=== PATIENT | female | born 1965 | race African-American/Black ===

== ENCOUNTER 2018-05-19 10:33 | Inpatient (IN) | payer OTHER ==
[2018-05-19 10:40] VITALS: BMI 20.3
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
[2018-05-19] MEDS ORDERED: LOPERAMIDE HCL 2 MG CAPSULE PO PRN (11:26)
[2018-05-19] MEDS ORDERED: P-EPHED 60MG/TRIPROLIDI 2.5MG TABLET PO PRN (11:26)
[2018-05-19] MEDS ORDERED: hydrOXYzine PAMOATE 50 MG CAPSULE (FP) PO PRN (11:26)
[2018-05-19] MEDS ORDERED: MAG HYDROX/AL HYDROX/SIMETH 30 ML UNIT-DOSE CUP PO PRN (11:26)
[2018-05-19] MEDS ORDERED: MAGNESIUM CITRATE 300 ML BOTTLE PO PRN (11:26)
[2018-05-19] MEDS ORDERED: guaiFENesin/D-METHORPHAN HB 10 ML UNIT-DOSE CUPS PO PRN (11:26)
[2018-05-19] MEDS ORDERED: MAGNESIUM HYDROX 2400MG/30ML ORAL SUSPENSION 30 ML CUP PO PRN (11:26)
[2018-05-19] MEDS ORDERED: MENTHOL/PHENOL 1 EACH UD MM PRN (11:26)
[2018-05-19] MEDS ORDERED: ACETAMINOPHEN 325 MG TABLET (FP) PO PRN (11:26)
[2018-05-19] MEDS ORDERED: ALBUTEROL SO4 8 GM HFA INHALER IH PRN (11:33)
--- NOTE | 2018-05-19 11:48 | PN ---
[facility] Progress Note Note: patient is on methadone maintenance 70 mgs/day,but last medicated 04/30/18 at her program,stated she received 20 mgs of methadone at [facility] yesterday on ,will give methadone 30 mgs today and buid up 10 mgs each day until reaching 70 mgs/day
[2018-05-19] MEDS ORDERED: METHADONE HCL 10 MG TABLET PO ONE (12:00)
[2018-05-19] MEDS: NICOTINE 21 MG/24 HOURS TOPICAL PATCH TD SCH (13:04)
--- NOTE | 2018-05-19 14:14 | EKG ---
Test Reason : Blood Pressure : / mmHG Vent. Rate : 075 BPM Atrial Rate : 075 BPM P-R Int : 128 ms QRS Dur : 082 ms QT Int : 398 ms P-R-T Axes : 076 078 046 degrees QTc Int : 444 ms NORMAL SINUS RHYTHM NORMAL ECG NO PREVIOUS ECGS AVAILABLE Confirmed by AFRHAT LOPEZ MD ([id number]) on 05/19/2018 2:14:20 PM Referred By: Confirmed By:FARHAT LOPEZ MD
[2018-05-19 16:11] LABS: HEMATOCRIT 40.1 % (32.4-45.2); HEMOGLOBIN 13.4 GM/dL (10.7-15.3); MCH 32.4 pg (25.7-33.7); MCHC 33.5 g/dl (32.0-36.0); MEAN CELL VOLUME 96.8 fl (80-96); MEAN PLT VOLUME 9.5 fl (7.5-11.1); PLATELET COUNT 222 K/MM3 (134-434); RBC 4.15 M/mm3 (3.60-5.2); RDW 15.2 % (11.6-15.6); WHITE BLOOD COUNT 3.6 K/mm3 (4.0-10.0)
[2018-05-19 16:53] LABS: ALK PHOS 82 U/L (45-117); ANION GAP 11 MMOL/L (8-16); BILIRUBIN,TOTAL 0.4 mg/dL (0.2-1); BLOOD UREA NITROGEN 12 mg/dL (7-18); CALCIUM 8.8 mg/dL (8.5-10.1); CHLORIDE 104 mmol/L (98-107); CO2 26 mmol/L (21-32); CREATININE 0.8 mg/dL (0.55-1.3); GLUCOSE,RANDOM 71 mg/dL (74-106); POTASSIUM 3.6 mmol/L (3.5-5.1); SGOT/AST 14 U/L (15-37); SGPT/ALT 18 U/L (13-61); SODIUM 141 mmol/L (136-145); TOT PROT 7.5 g/dl (6.4-8.2)
[2018-05-19] MEDS: metFORMIN HCL 500 MG TABLET (FP) PO SCH (16:54)
[2018-05-19] MEDS: THIAMINE HCL 100 MG TABLET (FP) PO SCH (21:07)
[2018-05-19] MEDS: MELATONIN 5 MG TABLETS PO PRN (21:07)
[2018-05-19 21:32] LABS: URINE APPEARANCE TURBID; URINE BILIRUBIN NEGATIVE (<2.0 mg/dL); URINE COLOR AMBER; URINE GLUCOSE (UA) NEGATIVE (NEGATIVE); URINE KETONE NEGATIVE (NEGATIVE); URINE LEUK ESTERASE NEGATIVE (NEGATIVE); URINE NITRITE NEGATIVE (NEGATIVE); URINE PROTEIN 2+ (NEGATIVE); URINE UROBILINOGEN NEGATIVE mg/dL (0.2-1.0)
[2018-05-19 22:03] LABS: CALCIUM OXALATE CRYSTALS MODERATE /hpf (NONE SEEN); EPI CELLS FEW /HPF (FEW); URINE BACTERIA RARE /hpf (NONE SEEN); URINE MUCUS RARE; YEAST RARE
[2018-05-20] MEDS ORDERED: METHADONE HCL 40 MG DISPERSABLE TABLET PO ONE (06:00)
[2018-05-20] MEDS: metFORMIN HCL 500 MG TABLET (FP) PO SCH ×2 (06:29→16:51)
--- NOTE | 2018-05-20 09:48 | HP ---
Psychiatrist Admission - Data Date of interview: 05/20/18 Admission source: [facility] Identifying data: This is the first admission to [address] [place] [address] for this 53 yo AA single mother of 8 grown children,homeless, supported by PA. Medical History: DM,BA,H/O Umbilical hernia repair. Psychiatric History: Patient reports first contact with psychiatrist about 17 yo to address depression,mood instability,anxity,drinking and drug abuse.Patient was placed on Seroquel with some response.She reports one psychiatric hospitalization last week to [facility] due to severe depression,suicidal thoughts.No suicidal attempts reported .Patient is not compliant with outpatient care.She obtains Seroquel 100 mg po bid from local ER. Physical/Sexual Abuse/Trauma History: Patient denies. Vital Signs: Vital Signs - 24 hr 05/19/18 05/19/18 05/20/18 10:37 13:21 00:30 Temperature 97.1 F L 98.4 F Pulse Rate 82 85 Respiratory 18 18 18 Rate Blood Pressure 130/73 118/73 05/20/18 05/20/18 03:30 06:52 Temperature 98.2 F Pulse Rate 80 Respiratory 18 19 Rate Blood Pressure 127/73 Allergies/Adverse Reactions: Allergies Allergy/AdvReac Type Severity Reaction Status Date / Time No Known Allergies Allergy Verified 05/19/18 10:44 Date of last physical exam: 05/19/18 Concur with the findings of this exam: Yes - Substance Abuse/Tx History Hx Alcohol Use: Yes (drinking since 15 yo,vodka 2 pints daily) Hx Substance Use: Yes (crack since 27 yo,heroin since 17 yo(MMTP 40)) Substance Use Type: Alcohol, Cocaine, Heroin Hx Substance Use Treatment: Yes (completed inpatient rehab at [facility] 1 month ago) Mental Status Exam - Mental Status Exam Alert and Oriented to: Time, Place, Person Cognitive Function: Grossly Intact Patient Appearance: Unkempt Mood: Sad, Irritable Affect: Labile Patient Behavior: Cooperative Speech Pattern: Clear Voice Loudness: Normal Thought Process: Goal Oriented Thought Disorder: Not Present Hallucinations: Denies Suicidal Ideation: Denies Homicidal Ideation: Denies Insight/Judgement: Fair Sleep: Fair Appetite: Good Muscle strength/Tone: Normal Gait/Station: Normal Psychiatric Findings - Problem List ([place] 1, 2,3) (1) Alcohol dependence Current Visit: Yes Status: Chronic (2) Cocaine dependence Current Visit: Yes Status: Chronic (3) DM2 (diabetes mellitus, type 2) Current Visit: Yes Status: Chronic (4) Methadone maintenance therapy patient Current Visit: Yes Status: Chronic (5) Nicotine dependence Current Visit: Yes Status: Chronic (6) Substance induced mood disorder Current Visit: Yes Status: Chronic - Initial Treatment Plan Initial Treatment Plan: Seroquel 100 mg po bid.Will monitor progress.
[2018-05-20] MEDS: PRENATAL VITAMINS W/ FOLIC ACID TABLET (FP) PO SCH (10:16)
[2018-05-20] MEDS: NICOTINE 21 MG/24 HOURS TOPICAL PATCH TD SCH (10:16)
[2018-05-20] MEDS: QUEtiapine FUMARATE 100 MG TABLET (FP) PO SCH ×2 (10:17→21:47)
[2018-05-20] MEDS: NICOTINE POLACRILEX 2 MG GUM BUC PRN (10:18)
[2018-05-20] MEDS: MELATONIN 5 MG TABLETS PO PRN (21:47)
[2018-05-20] MEDS: THIAMINE HCL 100 MG TABLET (FP) PO SCH (21:47)
[2018-05-21] MEDS ORDERED: METHADONE HCL 10 MG TABLET PO ONE (06:00)
[2018-05-21] MEDS ORDERED: METHADONE 40 MG, METHADONE 10 MG PO ONE (06:00)
[2018-05-21] MEDS ORDERED: METHADONE HCL 10 MG TABLET ONE (06:11)
[2018-05-21] MEDS ORDERED: METHADONE HCL 40 MG DISPERSABLE TABLET ONE (06:12)
[2018-05-21] MEDS: metFORMIN HCL 500 MG TABLET (FP) PO SCH ×2 (06:16→16:56)
[2018-05-21] MEDS: NICOTINE 21 MG/24 HOURS TOPICAL PATCH TD SCH (10:02)
[2018-05-21] MEDS: QUEtiapine FUMARATE 100 MG TABLET (FP) PO SCH ×2 (10:02→21:34)
[2018-05-21] MEDS: PRENATAL VITAMINS W/ FOLIC ACID TABLET (FP) PO SCH (10:02)
[2018-05-21] MEDS: NICOTINE POLACRILEX 2 MG GUM BUC PRN (10:03)
[2018-05-21] MEDS: THIAMINE HCL 100 MG TABLET (FP) PO SCH (21:34)
[2018-05-22] MEDS ORDERED: METHADONE 40 MG, METHADONE 20 MG PO ONE (06:00)
[2018-05-22] MEDS ORDERED: METHADONE HCL 10 MG TABLET PO ONE (06:00)
[2018-05-22] MEDS ORDERED: METHADONE HCL 40 MG DISPERSABLE TABLET ONE (06:17)
[2018-05-22] MEDS ORDERED: METHADONE HCL 10 MG TABLET ONE (06:17)
[2018-05-22] MEDS: metFORMIN HCL 500 MG TABLET (FP) PO SCH ×2 (06:20→16:31)
[2018-05-22] MEDS: QUEtiapine FUMARATE 100 MG TABLET (FP) PO SCH ×2 (10:03→21:07)
[2018-05-22] MEDS: NICOTINE 21 MG/24 HOURS TOPICAL PATCH TD SCH (10:03)
[2018-05-22] MEDS: PRENATAL VITAMINS W/ FOLIC ACID TABLET (FP) PO SCH (10:03)
[2018-05-22] MEDS: NICOTINE POLACRILEX 2 MG GUM BUC PRN ×2 (10:04→21:08)
[2018-05-22] MEDS: THIAMINE HCL 100 MG TABLET (FP) PO SCH (21:07)
[2018-05-23] MEDS ORDERED: METHADONE HCL 10 MG TABLET PO SCH (06:00)
[2018-05-23] MEDS ORDERED: METHADONE HCL 40 MG DISPERSABLE TABLET ONE (06:17)
[2018-05-23] MEDS ORDERED: METHADONE HCL 10 MG TABLET ONE (06:17)
[2018-05-23] MEDS: METHADONE 40 MG, METHADONE 30 MG PO SCH (06:19)
[2018-05-23] MEDS: metFORMIN HCL 500 MG TABLET (FP) PO SCH ×2 (06:20→17:10)
[2018-05-23] MEDS: PRENATAL VITAMINS W/ FOLIC ACID TABLET (FP) PO SCH (09:56)
[2018-05-23] MEDS: QUEtiapine FUMARATE 100 MG TABLET (FP) PO SCH ×2 (09:56→22:00)
[2018-05-23] MEDS: NICOTINE 21 MG/24 HOURS TOPICAL PATCH TD SCH (09:58)
[2018-05-23] MEDS: NICOTINE POLACRILEX 2 MG GUM BUC PRN (09:58)
[2018-05-23] MEDS: THIAMINE HCL 100 MG TABLET (FP) PO SCH (22:00)
[2018-05-23] MEDS: IBUPROFEN 400 MG TABLET (FP) PO PRN (22:01)
[2018-05-24] MEDS ORDERED: METHADONE HCL 10 MG TABLET ONE (05:45)
[2018-05-24] MEDS ORDERED: METHADONE HCL 40 MG DISPERSABLE TABLET ONE (05:45)
[2018-05-24] MEDS: METHADONE 40 MG, METHADONE 30 MG PO SCH (06:48)
[2018-05-24] MEDS: metFORMIN HCL 500 MG TABLET (FP) PO SCH ×2 (06:48→17:01)
[2018-05-24] MEDS: NICOTINE 21 MG/24 HOURS TOPICAL PATCH TD SCH (10:02)
[2018-05-24] MEDS: QUEtiapine FUMARATE 100 MG TABLET (FP) PO SCH ×2 (10:02→21:32)
[2018-05-24] MEDS: PRENATAL VITAMINS W/ FOLIC ACID TABLET (FP) PO SCH (10:02)
[2018-05-24] MEDS: IBUPROFEN 400 MG TABLET (FP) PO PRN (16:59)
[2018-05-24] MEDS: THIAMINE HCL 100 MG TABLET (FP) PO SCH (21:32)
[2018-05-25] MEDS ORDERED: METHADONE HCL 40 MG DISPERSABLE TABLET ONE (03:15)
[2018-05-25] MEDS ORDERED: METHADONE HCL 10 MG TABLET ONE (03:15)
[2018-05-25] MEDS: METHADONE 40 MG, METHADONE 30 MG PO SCH (06:38)
[2018-05-25] MEDS: metFORMIN HCL 500 MG TABLET (FP) PO SCH ×2 (06:39→16:29)
[2018-05-25] MEDS: QUEtiapine FUMARATE 100 MG TABLET (FP) PO SCH ×2 (10:09→21:01)
[2018-05-25] MEDS: PRENATAL VITAMINS W/ FOLIC ACID TABLET (FP) PO SCH (10:09)
[2018-05-25] MEDS: NICOTINE 21 MG/24 HOURS TOPICAL PATCH TD SCH (10:09)
[2018-05-25] MEDS: IBUPROFEN 400 MG TABLET (FP) PO PRN ×2 (16:35→21:57)
[2018-05-25] MEDS: THIAMINE HCL 100 MG TABLET (FP) PO SCH (21:01)
[2018-05-26] MEDS: metFORMIN HCL 500 MG TABLET (FP) PO SCH ×2 (06:41→16:50)
[2018-05-26] MEDS ORDERED: METHADONE HCL 10 MG TABLET PO SCH (07:30)
[2018-05-26] MEDS ORDERED: METHADONE HCL 40 MG DISPERSABLE TABLET ONE (07:32)
[2018-05-26] MEDS ORDERED: METHADONE HCL 10 MG TABLET ONE (07:32)
[2018-05-26] MEDS: METHADONE 40 MG, METHADONE 30 MG PO SCH (07:32)
[2018-05-26] MEDS: IBUPROFEN 400 MG TABLET (FP) PO PRN ×2 (08:41→18:27)
[2018-05-26] MEDS: QUEtiapine FUMARATE 100 MG TABLET (FP) PO SCH ×2 (09:29→21:36)
[2018-05-26] MEDS: NICOTINE 21 MG/24 HOURS TOPICAL PATCH TD SCH (09:29)
[2018-05-26] MEDS: PRENATAL VITAMINS W/ FOLIC ACID TABLET (FP) PO SCH (09:29)
[2018-05-26] MEDS: NICOTINE POLACRILEX 2 MG GUM BUC PRN ×2 (09:31→21:36)
[2018-05-26] MEDS: MELATONIN 5 MG TABLETS PO PRN (21:36)
[2018-05-26] MEDS: THIAMINE HCL 100 MG TABLET (FP) PO SCH (21:36)
[2018-05-27] MEDS ORDERED: METHADONE HCL 10 MG TABLET ONE (03:20)
[2018-05-27] MEDS ORDERED: METHADONE HCL 40 MG DISPERSABLE TABLET ONE (03:21)
[2018-05-27] MEDS: METHADONE 40 MG, METHADONE 30 MG PO SCH (06:54)
[2018-05-27] MEDS: metFORMIN HCL 500 MG TABLET (FP) PO SCH ×2 (06:55→16:53)
[2018-05-27] MEDS: NICOTINE 21 MG/24 HOURS TOPICAL PATCH TD SCH (10:06)
[2018-05-27] MEDS: PRENATAL VITAMINS W/ FOLIC ACID TABLET (FP) PO SCH (10:07)
[2018-05-27] MEDS: QUEtiapine FUMARATE 100 MG TABLET (FP) PO SCH ×2 (10:07→21:06)
[2018-05-27] MEDS: IBUPROFEN 400 MG TABLET (FP) PO PRN (10:08)
[2018-05-27] MEDS: NICOTINE POLACRILEX 2 MG GUM BUC PRN ×2 (10:08→16:53)
[2018-05-27] MEDS ORDERED: POLYETHYLENE GLYCOL 3350 119 GM BTL PO PRN (15:30)
[2018-05-27] MEDS: THIAMINE HCL 100 MG TABLET (FP) PO SCH (21:06)
[2018-05-27] MEDS: DOCUSATE SODIUM 100 MG CAPSULE (FP) PO SCH (21:07)
[2018-05-28] MEDS ORDERED: METHADONE HCL 40 MG DISPERSABLE TABLET ONE (05:48)
[2018-05-28] MEDS ORDERED: METHADONE HCL 10 MG TABLET ONE (05:48)
[2018-05-28] MEDS: DOCUSATE SODIUM 100 MG CAPSULE (FP) PO SCH ×3 (06:21→21:21)
[2018-05-28] MEDS: METHADONE 40 MG, METHADONE 30 MG PO SCH (06:21)
[2018-05-28] MEDS: metFORMIN HCL 500 MG TABLET (FP) PO SCH ×2 (07:21→16:56)
[2018-05-28] MEDS: NICOTINE 21 MG/24 HOURS TOPICAL PATCH TD SCH (10:03)
[2018-05-28] MEDS: QUEtiapine FUMARATE 100 MG TABLET (FP) PO SCH ×2 (10:03→21:21)
[2018-05-28] MEDS: PRENATAL VITAMINS W/ FOLIC ACID TABLET (FP) PO SCH (10:03)
[2018-05-28] MEDS: IBUPROFEN 400 MG TABLET (FP) PO PRN (16:58)
[2018-05-28] MEDS ORDERED: PT OWN MED DRAWER 7, Y5N ONE (21:05)
[2018-05-28] MEDS: THIAMINE HCL 100 MG TABLET (FP) PO SCH (21:21)
[2018-05-29] MEDS ORDERED: METHADONE HCL 10 MG TABLET ONE (05:41)
[2018-05-29] MEDS ORDERED: METHADONE HCL 40 MG DISPERSABLE TABLET ONE (05:41)
[2018-05-29] MEDS: METHADONE 40 MG, METHADONE 30 MG PO SCH (06:25)
[2018-05-29] MEDS: metFORMIN HCL 500 MG TABLET (FP) PO SCH ×2 (06:25→16:59)
[2018-05-29] MEDS: DOCUSATE SODIUM 100 MG CAPSULE (FP) PO SCH ×3 (06:25→21:28)
[2018-05-29] MEDS: QUEtiapine FUMARATE 100 MG TABLET (FP) PO SCH ×2 (10:10→21:28)
[2018-05-29] MEDS: PRENATAL VITAMINS W/ FOLIC ACID TABLET (FP) PO SCH (10:10)
[2018-05-29] MEDS: NICOTINE 21 MG/24 HOURS TOPICAL PATCH TD SCH (10:10)
[2018-05-29] MEDS: NICOTINE POLACRILEX 2 MG GUM BUC PRN ×2 (10:11→21:29)
[2018-05-29] MEDS: THIAMINE HCL 100 MG TABLET (FP) PO SCH (21:28)
[2018-05-30] MEDS ORDERED: METHADONE HCL 10 MG TABLET ONE (03:04)
[2018-05-30] MEDS ORDERED: METHADONE HCL 40 MG DISPERSABLE TABLET ONE (03:04)
[2018-05-30] MEDS: METHADONE 40 MG, METHADONE 30 MG PO SCH (06:33)
[2018-05-30] MEDS: DOCUSATE SODIUM 100 MG CAPSULE (FP) PO SCH ×3 (06:34→21:08)
[2018-05-30] MEDS: metFORMIN HCL 500 MG TABLET (FP) PO SCH ×2 (06:34→16:52)
[2018-05-30] MEDS ORDERED: PT OWN MED DRAWER 7, Y5N ONE (08:39)
[2018-05-30] MEDS: PRENATAL VITAMINS W/ FOLIC ACID TABLET (FP) PO SCH (09:50)
[2018-05-30] MEDS: QUEtiapine FUMARATE 100 MG TABLET (FP) PO SCH (09:50)
[2018-05-30] MEDS: NICOTINE 21 MG/24 HOURS TOPICAL PATCH TD SCH (09:50)
[2018-05-30] MEDS: NICOTINE POLACRILEX 2 MG GUM BUC PRN (09:52)
[2018-05-30] MEDS: IBUPROFEN 400 MG TABLET (FP) PO PRN (13:48)
[2018-05-30] MEDS ORDERED: MELATONIN 5 MG TABLETS PO PRN (16:47)
--- NOTE | 2018-05-30 16:51 | PN ---
[facility] Progress Note Note: Patient admits sleeping difficulties and mood instability.Properties of Seroquel has been discussed weith the patient including side effects,benefits and dose adjustment.SEroquel 100 mg po bid will be adjusted to 100 mg po am and 150 mg po hs.Supportive therapy provided.
[2018-05-30] MEDS: THIAMINE HCL 100 MG TABLET (FP) PO SCH (21:08)
[2018-05-30] MEDS: QUEtiapine FUMARATE 200 MG TABLET PO SCH (21:09)
[2018-05-31] MEDS ORDERED: METHADONE HCL 10 MG TABLET ONE (03:14)
[2018-05-31] MEDS ORDERED: METHADONE HCL 40 MG DISPERSABLE TABLET ONE (03:15)
[2018-05-31] MEDS: METHADONE 40 MG, METHADONE 30 MG PO SCH (06:10)
[2018-05-31] MEDS: DOCUSATE SODIUM 100 MG CAPSULE (FP) PO SCH ×3 (06:10→21:11)
[2018-05-31] MEDS: QUEtiapine FUMARATE 100 MG TABLET (FP) PO SCH (06:11)
[2018-05-31] MEDS: metFORMIN HCL 500 MG TABLET (FP) PO SCH ×2 (06:11→16:34)
[2018-05-31 06:57] VITALS: TEMP 97.8
[2018-05-31] MEDS: PRENATAL VITAMINS W/ FOLIC ACID TABLET (FP) PO SCH (09:54)
[2018-05-31] MEDS: NICOTINE 21 MG/24 HOURS TOPICAL PATCH TD SCH (09:54)
[2018-05-31] MEDS: NICOTINE POLACRILEX 2 MG GUM BUC PRN (09:56)
[2018-05-31] MEDS ORDERED: NAPROXEN 500 MG TABLET (FP) PO ONE (11:59)
[2018-05-31] MEDS: THIAMINE HCL 100 MG TABLET (FP) PO SCH (21:11)
[2018-05-31] MEDS: QUEtiapine FUMARATE 200 MG TABLET PO SCH (21:11)
[2018-05-31] MEDS: NAPROXEN 500 MG TABLET (FP) PO SCH (21:11)
[2018-06-01] MEDS ORDERED: METHADONE HCL 10 MG TABLET ONE (03:19)
[2018-06-01] MEDS ORDERED: METHADONE HCL 40 MG DISPERSABLE TABLET ONE (03:19)
[2018-06-01] MEDS: QUEtiapine FUMARATE 100 MG TABLET (FP) PO SCH (06:14)
[2018-06-01] MEDS: DOCUSATE SODIUM 100 MG CAPSULE (FP) PO SCH ×3 (06:14→21:16)
[2018-06-01] MEDS: metFORMIN HCL 500 MG TABLET (FP) PO SCH ×2 (06:14→17:06)
[2018-06-01] MEDS: METHADONE 40 MG, METHADONE 30 MG PO SCH (06:15)
[2018-06-01] MEDS: NICOTINE 21 MG/24 HOURS TOPICAL PATCH TD SCH (09:47)
[2018-06-01] MEDS: PRENATAL VITAMINS W/ FOLIC ACID TABLET (FP) PO SCH (09:48)
[2018-06-01] MEDS: NAPROXEN 500 MG TABLET (FP) PO SCH ×2 (09:48→21:16)
[2018-06-01] MEDS: NICOTINE POLACRILEX 2 MG GUM BUC PRN (09:50)
--- NOTE | 2018-06-01 14:45 | PN ---
Psychiatric Progress Note Vital Signs: Vital Signs Period Temp Pulse Resp BP Sys/Anderson Pulse Ox Last 24 Hr 97.8 F 101 16-16 124/88 Date of Session: 06/01/18 Chief Complaint:: Discharge visit HPI: Alcohol,cocaine and opioid dependence comorbid with substance induced mood disorder. ROS: Significant for DM. Current Medications: Active Medications Generic Name Dose Route Start Last Admin Trade Name Freq PRN Reason Stop Dose Admin Acetaminophen 650 mg 05/19/18 11:26 Tylenol - PO Q4H PRN FEVER Al Hydroxide/Mg Hydroxide 30 ml 05/19/18 11:26 Mylanta Oral Suspension - PO Q6H PRN DYSPEPSIA Albuterol Sulfate 2 puff 05/19/18 11:33 Ventolin Hfa Inhaler - IH Q4H PRN SHORT OF BREATH/WHEEZING Docusate Sodium 100 mg 05/27/18 22:00 06/01/18 13:43 Colace - PO 100 mg TID ASHWIN Administration Eucalyptus/Menthol/Phenol/Sorbitol 1 each 05/19/18 11:26 Cepastat Lozenge - MM Q4H PRN SORE THROAT Guaifenesin 10 ml 05/19/18 11:26 Robitussin Dm - PO Q6H PRN COUGH Hydroxyzine Pamoate 50 mg 05/19/18 11:26 Vistaril - PO Q4H PRN AGITATION Loperamide HCl 4 mg 05/19/18 11:26 Imodium - PO Q6H PRN DIARRHEA Magnesium Citrate 300 ml 05/19/18 11:26 Citroma - PO Q48H PRN CONSTIPATION Magnesium Hydroxide 30 ml 05/19/18 11:26 05/26/18 09:29 Milk Of Magnesia - PO 30 ml DAILY PRN Administration CONSTIPATION Melatonin 10 mg 05/30/18 16:47 Melatonin PO HS PRN INSOMNIA Metformin HCl 500 mg 05/19/18 16:30 06/01/18 06:14 Glucophage - PO 500 mg BID@0700,1630 ASHWIN Administration Methadone HCl 40 mg/ Methadone 70 mg 05/26/18 07:30 06/01/18 06:15 HCl 30 mg PO 70 mg DAILY@0600 ASHWIN Administration Naproxen 500 mg 05/31/18 22:00 06/01/18 09:48 Naprosyn - PO 500 mg BID ASHWIN Administration Nicotine 21 mg 05/19/18 11:30 06/01/18 09:47 Nicoderm Patch - TD 21 mg DAILY ASHWIN Administration Nicotine Polacrilex 2 mg 05/19/18 11:26 06/01/18 09:50 Nicorette Gum - BUC 2 mg Q2H PRN Administration NICOTINE REPLACEMENT RX Polyethylene Glycol 17 gm 05/27/18 15:30 Miralax (For Daily Use) - PO DAILY PRN CONSTIPATION Multivit/Folic Acid/Iron 1 tab 05/20/18 10:00 06/01/18 09:48 Vitamins ([facility]) - PO 1 tab DAILY ASHWIN Administration Pseudoephedrine/Triprolidine 1 combo 05/19/18 11:26 Actifed - PO TID PRN NASAL CONGESTION Quetiapine Fumarate 200 mg 05/30/18 22:00 05/31/18 21:11 Seroquel - PO 200 mg HS ASHWIN Administration Quetiapine Fumarate 100 mg 05/31/18 07:00 06/01/18 06:14 Seroquel - PO 100 mg AM ASHWIN Administration Thiamine HCl 100 mg 05/19/18 22:00 05/31/18 21:11 Vitamin B1 - PO 100 mg HS ASHWIN Administration Current Side Effect: No Lab tests ordered: No Lab tests reviewed: Yes Provider note:: Patient will complete this program tomorrow .She has met her treatment goals ans will continue to address her issues on outpatient basis at [facility] .Patient reports finding current medications:Seroquel 100 mg po am and 200 mg po hs help to cope with mood instability,insomnia.Scripts for 30 days provided. Supportive therapy provided focusing on relapse prevention, coping skills,support utilization has been discussed as well as other resourses to maintain recovery. Patient is stable for discharge tomorrow 06/02/18. Total face to face time:: 30 Mental Status Exam - Mental Status Exam Alert and Oriented to: Time, Place, Person Cognitive Function: Grossly Intact Patient Appearance: Well Groomed Mood: Euthymic Affect: Appropriate, Mood Congruent, Normal Range Patient Behavior: Cooperative Speech Pattern: Clear Voice Loudness: Normal Thought Process: Goal Oriented Thought Disorder: Not Present Hallucinations: Denies Suicidal Ideation: Denies Homicidal Ideation: Denies Insight/Judgement: Fair Sleep: Fair Appetite: Good Muscle strength/Tone: Normal Gait/Station: Normal Psychiatric Treatment Plan - Problem List (1) Alcohol dependence Current Visit: Yes (2) Cocaine dependence Current Visit: Yes (3) DM2 (diabetes mellitus, type 2) Current Visit: Yes (4) Methadone maintenance therapy patient Current Visit: Yes (5) Nicotine dependence Current Visit: Yes (6) Substance induced mood disorder Current Visit: Yes
[2018-06-01] MEDS: THIAMINE HCL 100 MG TABLET (FP) PO SCH (21:16)
[2018-06-01] MEDS: QUEtiapine FUMARATE 200 MG TABLET PO SCH (21:16)
[2018-06-02] MEDS ORDERED: METHADONE HCL 40 MG DISPERSABLE TABLET ONE (03:42)
[2018-06-02] MEDS ORDERED: METHADONE HCL 10 MG TABLET ONE (03:42)
[2018-06-02] MEDS: METHADONE 40 MG, METHADONE 30 MG PO SCH (06:38)
[2018-06-02] MEDS: QUEtiapine FUMARATE 100 MG TABLET (FP) PO SCH (06:39)
[2018-06-02] MEDS: DOCUSATE SODIUM 100 MG CAPSULE (FP) PO SCH (06:39)
[2018-06-02] MEDS: metFORMIN HCL 500 MG TABLET (FP) PO SCH (06:39)
[2018-06-02 06:51] VITALS: BP 114/72; PULSE 63
== END 2018-06-02 09:00 | disposition home or self-care (01) | DRG 772 ==
LOC: YASAS 10:33 → Y3E 11:21
PROVIDERS: ADMIT Psychiatry & Neurology Psychiatry; ATTEND Psychiatry & Neurology Psychiatry
PROC: HZ42ZZZ Group Counseling for Substance Abuse Treatment, Cognitive-Behavioral (ICD-10-PCS; principal; 2018-05-19)
DX: F10.20 Alcohol dependence, uncomplicated (principal); F14.20 Cocaine dependence, uncomplicated; F11.20 Opioid dependence, uncomplicated; F17.210 Nicotine dependence, cigarettes, uncomplicated; F19.24 Other psychoactive substance dependence with psychoactive substance-induced mood disorder; F32.9 Major depressive disorder, single episode, unspecified; Z79.84 Long term (current) use of oral hypoglycemic drugs; R63.4 Abnormal weight loss; Z68.20 Body mass index [BMI] 20.0-20.9, adult; Z86.2 Personal history of diseases of the blood and blood-forming organs and certain disorders involving the immune mechanism; Z59.0 Homelessness
CPT/HCPCS: 36415; 80053; 81003; 81015; 82962; 85027; 86593; 87389; 93005; 93010